=== PATIENT | female | born 1960 | race Caucasian/White ===

== ENCOUNTER 2016-06-30 12:26 | Day surgery (SDC) ==
[2016-06-30] MEDS ORDERED: LR 1,000 ML ONE (13:11)
[2016-06-30] MEDS ORDERED: MYLICON DROPS (DOSE) MISC ONE (15:12)
[2016-06-30] MEDS ORDERED: XYLOCAINE-MPF 2% ONE (15:40)
[2016-06-30 15:50] VITALS: BP 128/84
[2016-06-30] MEDS ORDERED: DIPRIVAN 1% ONE (16:11)
--- NOTE | 2016-06-30 19:41 | OPERATIVE NOTE ---
PROCEDURE DATE: 06/30/2016 REFERRING PHYSICIAN: Kirill Garvin MD. INDICATIONS FOR PROCEDURE: 1. Dysphagia. 2. GERD. 3. Heartburn. PROCEDURE PERFORMED: Esophagogastroduodenoscopy with dilation. CONSENT: Informed consent was obtained from the patient prior to the procedure. The risks, benefits, and alternatives were discussed with the patient and her . MEDICATION: The patient received monitored anesthesia care. PERFORMING PHYSICIAN: Dejah Banks MD. ASSISTANTS: 1. ST. Jak 2. Mervat Gipson RN. 3. Basim Lebron CRNA. 4. Ariel Torres MD (Anesthesia). COMPLICATIONS: There were no complications. ESTIMATED BLOOD LOSS: None. SPECIMENS REMOVED: None. FINDINGS: After sedation was achieved, the upper endoscope was inserted to the 2nd portion of the duodenum. The hypopharynx appeared normal. There was significant resistance to passage of the scope at the upper esophageal sphincter, consistent with cricopharyngeal achalasia. The tubular esophagus appeared endoscopically normal. The GE junction was measured at 40 cm from the incisors. Although it was widely patent, there was moderate resistance when there was a contraction, requiring pressure for the scope to traverse the lower esophageal sphincter. The GE junction was measured at 40 cm. There was a hiatal hernia that spanned from 40-44 cm. In the gastric lumen, there was minimal to mild nonerosive gastritis in the antrum and body. On retroflexed view, the fundus appeared normal, except for a 3 mm sessile polyp that remains intact. On forward view, the pylorus appeared normal. In the duodenum, the mucosa appeared normal in the 1st and 2nd portion of the duodenum. After the exam was complete, the scope was retracted into the mid gastric body. A guidewire was placed and the esophagus was dilated with a 51-[place] Savary dilator. After the dilation was performed, the scope was reinserted. It should be noted, there was mild heme at both the upper and lower esophageal sphincters consistent with successful dilation. Notably, there was decreased resistance to passage of the scope into the mid gastric body. IMPRESSION: 1. 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 2. Lower esophageal sphincter hypertension. 3. Hiatal hernia. 4. Mild gastritis. 5. Fundic gland polyp. 6. Successful dilation. RECOMMENDATIONS: 1. The patient is currently taking Dexilant and Pepcid without success. I would discontinue those medications. 2. Begin omeprazole 40 mg daily. 3. Add Carafate 1 g 4 times a day for 12 weeks and then stop. 4. Continue Zantac 75 at h.s. as you are currently doing. 5. We will schedule a gastric emptying study to assess gastric function. 6. We will have the patient return to clinic after her gastric emptying study.
== END 2016-06-30 16:01 | disposition home or self-care (01) ==
LOC: ENDO 12:26
PROVIDERS: ATTEND Internal Medicine Gastroenterology
DX: R13.10 Dysphagia, unspecified (principal); K21.9 Gastro-esophageal reflux disease without esophagitis; K44.9 Diaphragmatic hernia without obstruction or gangrene; K22.0 Achalasia of cardia; I10 Essential (primary) hypertension
CPT/HCPCS: J7120